=== PATIENT | male | born 1930 | race Caucasian/White ===

== ENCOUNTER 2018-04-09 20:00 | Observation (INO) | payer OTHER, BC ==
--- NOTE | 2018-04-09 20:08 | PDOC ---
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 As per patient, he was sick approximately 2- 3 weeks ago with URI symptoms including a nonproductive cough and one day of fever and chills. He saw his PCP, Dr. Shanks a week ago who placed him on 5 days of Medrol and a week of Amoxicillin. He endorses that despite his compliancy over the past week he has been experiencing worsening shortness of breath with only minimal relief with his nebulizer every 3 hours and sitting upright, prompting his visit to the ER tonight. He denies any current fevers, chills, headache or dizziness. He denies any recent nausea, vomit, diarrhea or constipation. He denies any recent chest pain or palpitations. He denies any recent dysuria, frequency, urgency or hematuria. Allergies: NKDA Past surgical history: Cardiac bypass CABG 1997 Social History: Nonsmoker. Denies EtOH use and recreational drug use. Primary Care Physician: Dr. Shanks Roving Or Yarn Color Checker: Dr. Leblanc <Eulalio Walden - Last Filed: 04/09/18 20:33> <Charmaine Goldman - Last Filed: 04/10/18 05:39> - General Chief Complaint: Shortness of Breath Stated Complaint: SOB Time Seen by Provider: 04/09/18 20:06 Past History <Eulalio Walden - Last Filed: 04/09/18 20:33> - Past Medical History Anemia: No Asthma: Yes Cancer: No Cardiac Disorders: Yes ([place] 1997, BYPASS) CVA: No COPD: No CHF: No Dementia: No Diabetes: No GI Disorders: No Disorders: No HTN: Yes Hypercholesterolemia: Yes Liver Disease: No Seizures: No Thyroid Disease: No - Surgical History Abdominal Surgery: No Appendectomy: No Cardiac Surgery: Yes (CABG X 4 VESSELS 1997) Cholecystectomy: No Lung Surgery: No Neurologic Surgery: No Orthopedic Surgery: No - Immunization History Immunization Up to Date: Yes - Suicide/Smoking/Psychosocial Hx Smoking Status: No Smoking History: Unknown if ever smoked Have you smoked in the past 12 months: No Number of Cigarettes Smoked Daily: 0 If you are a former smoker, when did you quit?: 0 Cigars Per Day: 0 Information on smoking cessation initiated: No Hx Alcohol Use: No Drug/Substance Use Hx: No Substance Use Type: None Hx Substance Use Treatment: No <Charmaine Goldman - Last Filed: 04/10/18 05:39> - Past Medical History Allergies/Adverse Reactions: Allergies Allergy/AdvReac Type Severity Reaction Status Date / Time No Known Drug Allergies Allergy Verified 08/27/13 10:43 Home Medications: Ambulatory Orders Montelukast Na [Singulair -] 10 mg PO HS 09/04/12 Simvastatin [Zocor] 80 mg PO DAILY 09/04/12 Acetaminophen [Tylenol .Extra-Strength -] 500 mg PO PRN PRN 03/25/13 Albuterol Sulfate Inhaler - [Ventolin HFA Inhaler -] 2 inh PO Q4H PRN 03/25/13 Albuterol 0.083% Nebulizer Salma [Ventolin 0.083% Nebulizer Soln -] 1 neb NEB Q6H PRN #20 vial 03/30/13 Carvedilol 3.125 mg PO BID 08/26/13 Lisinopril [Prinivil] 5 mg PO DAILY 08/26/13 Apixaban [Eliquis] 5 mg PO BID 04/09/18 Spironolactone 5 mg PO DAILY 04/09/18 Review of Systems - Review of Systems Able to Perform ROS?: Yes Comments:: 04/09/18 20:34 CONSTITUTIONAL: Absent: fever, no chills, no fatigue EYES: Absent: visual changes ENT: Absent: ear pain, no sore throat CARDIOVASCULAR: Absent: chest pain, no palpitations RESPIRATORY: Present: SOB. Cough. GI: Absent: abdominal pain, no nausea, no vomiting, no constipation, no diarrhea GENITOURINARY: Absent: dysuria, no frequency, no hematuria MUSKULOSKELETAL: Absent: back pain, no arthralgia, no myalgia SKIN: Absent: rash NEURO: Absent: headache <Eulalio Walden - Last Filed: 04/09/18 20:33> *Physical Exam - Vital Signs Last Vital Signs Temp Pulse Resp BP Pulse Ox 97.5 F L 75 14 129/73 98 04/09/18 20:03 04/09/18 20:03 04/09/18 20:03 04/09/18 20:03 04/09/18 20:03 - Physical Exam Comments: 04/09/18 20:36 GENERAL: The patient is awake, alert, and fully oriented, in no acute distress. HEAD: Normal with no signs of trauma. EYES: Pupils equal, round and reactive to light, extraocular movements intact, sclera anicteric, conjunctiva clear with no pallor. ENT: Ears normal, nares patent, oropharynx clear without exudates. Moist mucous membranes. NECK: Normal range of motion, supple without lymphadenopathy, JVD, or masses. +LUNGS: Distant breath sounds. No crackles. HEART: Regular rate and rhythm, normal S1 and S2 without murmur or rub. ABDOMEN: Soft/nontender/nondistended. BS wnl. No guarding or rebound. No palpable masses. No hepatosplenomegaly. +EXTREMITIES: 1+ nonpitting edema to the right ankle. No edema to the left ankle. Normal range of motion. No clubbing or cyanosis. No cords, erythema, or tenderness. NEUROLOGICAL: Cranial nerves II through XII grossly intact. Normal speech, normal gait. PSYCH: Normal mood, normal affect. SKIN: Warm, Dry, normal turgor, no rashes or lesions noted. <Eulalio Walden - Last Filed: 04/09/18 20:33> - Vital Signs Last Vital Signs Temp Pulse Resp BP Pulse Ox 97.5 F L 75 14 129/73 98 04/09/18 20:03 04/09/18 20:03 04/09/18 20:03 04/09/18 20:03 04/09/18 20:03 <Charmaine Goldman - Last Filed: 04/10/18 05:39> Moderate Sedation - Procedure Monitoring Vital Signs: Procedure Monitoring Vital Signs Temperature 97.5 F L 04/09/18 20:03 Pulse Rate 75 04/09/18 20:03 Respiratory Rate 14 04/09/18 20:03 Blood Pressure 129/73 04/09/18 20:03 O2 Sat by Pulse Oximetry (%) 98 04/09/18 20:03 <Eulalio Walden - Last Filed: 04/09/18 20:33> - Procedure Monitoring Vital Signs: Procedure Monitoring Vital Signs Temperature 97.5 F L 04/09/18 20:03 Pulse Rate 75 04/09/18 20:03 Respiratory Rate 14 04/09/18 20:03 Blood Pressure 129/73 04/09/18 20:03 O2 Sat by Pulse Oximetry (%) 98 04/09/18 20:03 <Charmaine Goldman - Last Filed: 04/10/18 05:39> ED Treatment Course - Medications Given in the ED: ED Medications Discontinued Medications Generic Name Dose Route Start Last Admin Trade Name Freq PRN Reason Stop Dose Admin Albuterol/Ipratropium 1 amp 04/09/18 20:27 04/09/18 20:32 Duoneb - NEB 04/09/18 20:28 1 amp ONCE ONE Administration <Eulalio Walden - Last Filed: 04/09/18 20:33> - LABORATORY CBC & Chemistry Diagram: 04/09/18 20:30 04/09/18 20:30 <Charmaine Goldman - Last Filed: 04/10/18 05:39> Progress Note - Progress Note Progress Note: Documentation has been prepared under my direction and personally reviewed by me in its entirety. I attest that this documented accurately reflects all work, treatment, procedures and medical decision making performed by me. <Charmaine Goldman - Last Filed: 04/10/18 05:39> Medical Decision Making - Medical Decision Making As noted above, this 87-year-old man with multiple medical problems including COPD presents with a few week history of nonproductive cough and intermittent wheezing/shortness of breath. He had been treated with antibiotics and short oral steroid course few weeks ago. Despite this, symptoms have been persistent with recurrent shortness of breath. Exam as noted DuoNeb nebulizer treatment was administered; examination afterwards revealed better air movement. Patient subjectively also felt better. Solu-Medrol 125 mg IV started Chest x-ray (PA and lateral) showed expansion of lung soliz suggestive of COPD but no infiltrate/effusion/masses Laboratory evaluation essentially normal except for mild prerenal azotemia and slight elevation of INR of 1.25. Troponin was not elevated. Because this elderly patient has had progressive symptoms of shortness of breath /nonproductive cough for 2-3 weeks that have been persistent despite multiple nebulizer treatments in recent days, admission for exacerbation of COPD OPD and treatment with IV corticosteroids and regular nebulizer treatments as warranted. [facility] hospitalist service contacted: Case discussed with JUAN M Reeder. Patient will be admitted to Dr. Rubio service <Charmaine Goldman - Last Filed: 04/10/18 05:39> *DC/Admit/Observation/Transfer - Attestations Scribe Attestion: 04/09/18 20:36 Documentation prepared by Eulalio Walden, acting as resident medical officer for Charmaine Goldman MD. <Eulalio Walden - Last Filed: 04/09/18 20:33> - Discharge Dispostion Decision to Admit order: Yes <Charmaine Goldman - Last Filed: 04/10/18 05:39> Diagnosis at time of Disposition: COPD exacerbation - Discharge Dispostion Condition at time of disposition: Stable
[2018-04-09] MEDS ORDERED: ALBUTEROL SO4 2.5/IPRATROPIUM 0.5 INH SOL 3 ML VIAL.NEB. NEB ONE ×2 (20:27→20:33)
[2018-04-09 20:46] LABS: BASO % 2.2 % (0-2.0); HEMATOCRIT 43.3 % (35.4-49); HEMOGLOBIN 14.2 GM/dl (11.7-16.9); MCH 31.8 pg (25.7-33.7); MCHC 32.7 g/dl (32.0-35.9); MEAN CELL VOLUME 97.2 fl (80-96); MEAN PLT VOLUME 8.5 fl (7.5-11.1); MONO % 6.5 % (3.8-10.2); NEUT % 50.3 % (42.8-82.8); PLATELET COUNT 162 K/MM3 (134-434); RBC 4.46 M/mm3 (4.00-5.60); WHITE BLOOD COUNT 4.8 K/mm3 (4.0-10.8)
[2018-04-09 20:58] LABS: INR 1.25 (0.82-1.09); PROTHROMBIN TIME (PATIENT) 13.9 SEC (10.2-13.0)
[2018-04-09 21:03] LABS: ALBUMIN 3.5 g/dl (3.5-5.0); ALK PHOS 45 U/L (32-92); ANION GAP 7 MMOL/L (8-16); BILIRUBIN,TOTAL 0.8 mg/dl (0.2-1.0); BLOOD UREA NITROGEN 23 mg/dl (7-18); CALCIUM 8.5 mg/dl (8.4-10.2); CHLORIDE 103 mmol/L (98-107); CO2 24 mmol/L (22-28); CREATININE 1.1 mg/dl (0.6-1.3); GLUCOSE,RANDOM 113 mg/dl (74-106); POTASSIUM 4.1 mmol/L (3.5-5.1); SGOT/AST 18 U/L (10-42); SGPT/ALT 12 U/L (10-40); SODIUM 134 mmol/L (136-145); TOT PROT 6.9 g/dl (6.4-8.3)
[2018-04-09] MEDS ORDERED: methylPREDNISolone NA SUCC 125 MG/2 ML VIAL IVPB ONE (21:19)
[2018-04-09] MEDS ORDERED: methylPREDNISolone NA SUCC 125 MG/2 ML VIAL ONE (21:30)
[2018-04-09] MEDS ORDERED: ACETAMINOPHEN 500 MG TABLET (FP) PO PRN (23:39)
--- NOTE | 2018-04-09 23:59 | HP ---
CHIEF COMPLAINT: Increased SOB and cough x 1 week PCP: Dr. Shanks Comic Illustrator: Dr. Leblanc HISTORY OF PRESENT ILLNESS: 87 year old male, PMH significant for asthma (multiple hospitalizations >20 years ago), [place] (s/p CABG bypass 98), DVT (RLE on Eliquis), HTN, and HLD presented to the ED with one week of worsening SOB and cough. He reports he felt "a cold coming on" one week ago. He did not have a fever, but had chills and a cough which he was unable to bring up any mucus though he felt like it was there. He was seen by his PCP Dr. Shanks and was prescribed a Medrol Dose pack and a z-pack. He reports the medications were not effective, and his SOB worsened. He was using his home nebulizer multiple times a day. He reports his asthma has been stable for many years. Approximately 20 years ago , he had multiple hospitalizations for asthma exacerbations. He used to see research program intern Dr. Leblanc OP, but once Dr. Leblanc tapered him off daily prednisone 6-7 years ago, his asthma has been stable. Denies headache, dizziness, syncope , no palpitations, no abdominal pain or n/v/d, no dysuria, frequency, or hematuria. Upon admission to the ED, VSS, labs WNL, CXR negative for infiltrate. He was treated with Solu-medrol 125 IVP and dunebs. He was placed on observation and a consult with Dr. Leblanc has been ordered. Recent Travel: No PAST MEDICAL HISTORY: Asthma [place] (s/p CABG bypass 98) DVT HTN HLD PAST SURGICAL HISTORY: CABG x 4 1997 Social History: Lives alone, is in [facility] after major stroke a few months ago. 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 4 adult children; 2 sons and 2 daughters. Smoking: Never Alcohol: Rarely; sometimes has 1/2 can of beer Drugs: Denies Family History: Father: Lung Ca, age 57 Mother: Leukemia, age 63 Allergies No Known Drug Allergies Allergy (Verified 08/27/13 10:43) HOME MEDICATIONS: Home Medications Medication Instructions Recorded Montelukast Na [Singulair -] 10 mg PO HS 09/04/12 Simvastatin [Zocor] 80 mg PO DAILY 09/04/12 Acetaminophen [Tylenol 500 mg PO PRN PRN 03/25/13 .Extra-Strength -] Albuterol Sulfate Inhaler - 2 inh PO Q4H PRN 03/25/13 [Ventolin HFA Inhaler -] Albuterol 0.083% Nebulizer Salma 1 neb NEB Q6H PRN #20 vial 03/30/13 [Ventolin 0.083% Nebulizer Soln -] Carvedilol 3.125 mg PO BID 08/26/13 Lisinopril [Prinivil] 5 mg PO DAILY 08/26/13 Apixaban [Eliquis] 5 mg PO BID 04/09/18 Spironolactone 5 mg PO DAILY 04/09/18 REVIEW OF SYSTEMS CONSTITUTIONAL: (+) Chills Absent: fever, diaphoresis, generalized weakness, malaise, loss of appetite, weight change HEENT: Absent: rhinorrhea, nasal congestion, throat pain, throat swelling, difficulty swallowing, mouth swelling, ear pain, eye pain, visual changes CARDIOVASCULAR: Absent: chest pain, syncope, palpitations, irregular heart rate, lightheadedness , peripheral edema RESPIRATORY: (+) cough, shortness of breath, dyspnea with exertion Absent: orthopnea, wheezing, stridor, hemoptysis GASTROINTESTINAL: Absent: abdominal pain, abdominal distension, nausea, vomiting, diarrhea, constipation, melena, hematochezia GENITOURINARY: Absent: dysuria, frequency, urgency, hesitancy, hematuria, flank pain, genital pain MUSCULOSKELETAL: Absent: myalgia, arthralgia, joint swelling, back pain, neck pain SKIN: Absent: rash, itching, pallor HEMATOLOGIC/IMMUNOLOGIC: (+) Easy bleeding (On Eliquis) Absent: easy bruising, lymphadenopathy, frequent infections ENDOCRINE: Absent: unexplained weight gain, unexplained weight loss, heat intolerance, cold intolerance NEUROLOGIC: Absent: headache, focal weakness or paresthesias, dizziness, unsteady gait, seizure, mental status changes, bladder or bowel incontinence PSYCHIATRIC: Absent: anxiety, depression, suicidal or homicidal ideation, hallucinations. PHYSICAL EXAMINATION Vital Signs - 24 hr 04/09/18 04/09/18 20:03 20:44 Temperature 97.5 F L Pulse Rate 75 Respiratory 14 Rate Blood Pressure 129/73 O2 Sat by Pulse 98 98 Oximetry (%) GENERAL: Awake, alert, and fully oriented, in no acute distress. HEAD: Normal with no signs of trauma. EYES: Pupils equal, round and reactive to light, extraocular movements intact, sclera anicteric, conjunctiva clear. No lid lag. EARS, NOSE, THROAT: Nares patent, oropharynx clear without exudates. Moist mucous membranes. NECK: Normal range of motion, supple without lymphadenopathy, JVD, or masses. LUNGS: Distant breath sounds, no wheezes, and no crackles. Labored breathing after talking. HEART: Regular rate and rhythm, normal S1 and S2 without murmur, rub or gallop. ABDOMEN: Soft, nontender, distended, typmanic to percussion, normoactive bowel sounds, no guarding, no rebound, no masses. No hepatomegaly or splenomegaly. MUSCULOSKELETAL: Normal range of motion at all joints. No bony deformities or tenderness. No CVA tenderness. UPPER EXTREMITIES: 2+ pulses, warm, well-perfused. No cyanosis. No clubbing. No peripheral edema. LOWER EXTREMITIES: R>L leg, non pitting edema, 2+ pulses, warm, well-perfused. No calf tenderness. NEUROLOGICAL: No facial droop, tongue midline, normal speech and gait. PSYCHIATRIC: Pleasant, talkative, cooperative. Good eye contact. Appropriate mood and affect. SKIN: Warm, dry, normal turgor, scattered SK to trunk, normal capillary refill. Laboratory Results - last 24 hr 04/09/18 04/09/18 04/09/18 20:30 20:30 20:30 WBC 4.8 RBC 4.46 Hgb 14.2 Hct 43.3 MCV 97.2 H MCH 31.8 MCHC 32.7 RDW 14.0 Plt Count 162 MPV 8.5 Absolute Neuts (auto) 2.5 Neutrophils % 50.3 Lymphocytes % 30.0 Monocytes % 6.5 Eosinophils % 11.0 H Basophils % 2.2 H PT with INR INR Sodium 134 L Potassium 4.1 Chloride 103 Carbon Dioxide 24 Anion Gap 7 L BUN 23 H Creatinine 1.1 Creat Clearance w eGFR > 60 Random Glucose 113 H Calcium 8.5 Total Bilirubin 0.8 AST 18 ALT 12 Alkaline Phosphatase 45 Creatine Kinase 45 Troponin I < 0.03 Total Protein 6.9 Albumin 3.5 04/09/18 20:30 WBC RBC Hgb Hct MCV MCH MCHC RDW Plt Count MPV Absolute Neuts (auto) Neutrophils % Lymphocytes % Monocytes % Eosinophils % Basophils % PT with INR 13.9 H INR 1.25 H Sodium Potassium Chloride Carbon Dioxide Anion Gap BUN Creatinine Creat Clearance w eGFR Random Glucose Calcium Total Bilirubin AST ALT Alkaline Phosphatase Creatine Kinase Troponin I Total Protein Albumin ASSESSMENT/PLAN: 87 year old male, PMH significant for asthma (multiple hospitalizations >20 years ago), [place] (s/p CABG bypass 98), DVT (RLE on Eliquis), HTN, and HLD presented to the ED with one week of worsening SOB and cough. Workup in the ED did not yield any significant findings, patient was treated with IV solumedrol and nebulizers and placed on observation for pulmonary consult. Asthma - CXR negative for infiltrate - Given Solu-medrol 125 IVP in the ed, continue 40 mg IV q6h - Duonebs PRN - Continue Singular 10 mg PO QHS - Pulmonology consult ordered with Dr. Leblanc DVT - Lower right leg, diagnosed 10 years ago - Continue Eliquis 5 mg PO BID HTN - Continue home medications: - Aldactone 25 mg PO qday - Lisinopril 5 mg PO qday - Carvedilol 3.125 PO BID - Monitor BP HLD - Continue Atorvastatin 40 mg PO QHS Prophylaxis - DVT: On Eliquis 5 mg PO BID FEN - PO intake adequate - Replete as needed - Low Na diet Disp: Patient placed on observation, may be appropriate for d/c tomorrow after cleared by Dr. Leblanc. Visit type - Emergency Visit Emergency Visit: Yes Care time: The patient presented to the Emergency Department on the above date and was hospitalized for further evaluation of their emergent condition. - New Patient This patient is new to me today: Yes Date on this admission: 04/10/18 - Critical Care Critical Care patient: No
[2018-04-10] MEDS ORDERED: ALBUTEROL SO4 8 GM HFA INHALER IH PRN (00:24)
[2018-04-10 00:39] VITALS: BMI 24.8
[2018-04-10] MEDS: methylPREDNISolone NA SUCC 40 MG/1 ML VIAL IVPUSH SCH ×4 (02:32→21:27)
[2018-04-10 08:32] LABS: ANION GAP 8 MMOL/L (8-16); BLOOD UREA NITROGEN 26 mg/dl (7-18); CALCIUM 8.8 mg/dl (8.4-10.2); CHLORIDE 106 mmol/L (98-107); CO2 22 mmol/L (22-28); CREATININE 1.1 mg/dl (0.6-1.3); GLUCOSE,RANDOM 140 mg/dl (74-106); POTASSIUM 4.3 mmol/L (3.5-5.1); SODIUM 136 mmol/L (136-145)
[2018-04-10 08:42] LABS: HEMATOCRIT 44.4 % (35.4-49); HEMOGLOBIN 14.3 GM/dl (11.7-16.9); MCH 31.3 pg (25.7-33.7); MCHC 32.2 g/dl (32.0-35.9); MEAN CELL VOLUME 97.4 fl (80-96); MEAN PLT VOLUME 8.4 fl (7.5-11.1); PLATELET COUNT 157 K/MM3 (134-434); RBC 4.56 M/mm3 (4.00-5.60); RDW 13.8 % (11.9-15.9); WHITE BLOOD COUNT 5.7 K/mm3 (4.0-10.8)
--- NOTE | 2018-04-10 08:49 | PN ---
Physical Exam: SUBJECTIVE: Patient seen and examined. Feeling better, though still with some dyspnea. Dry cough. No fevers/chills. OBJECTIVE: Vital Signs Period Temp Pulse Resp BP Sys/Cor[place]ett Pulse Ox Last 24 Hr 97.5 F-97.9 F 74-99 14-18 101-154/63-89 94-98 GENERAL: The patient is awake, alert, and fully oriented, in no acute distress. HEAD: Normal with no signs of trauma. EYES: PERRL, extraocular movements intact, sclera anicteric, conjunctiva clear. No ptosis. ENT: Ears normal, nares patent, oropharynx clear without exudates, moist mucous membranes. NECK: Trachea midline, full range of motion, supple. LUNGS: Breath sounds equal, clear to auscultation bilaterally, no wheezes, no crackles, no accessory muscle use. HEART: Regular rate and rhythm, S1, S2 without murmur, rub or gallop. ABDOMEN: Soft, nontender, nondistended, normoactive bowel sounds, no guarding, no rebound, no hepatosplenomegaly, no masses. EXTREMITIES: 2+ pulses, warm, well-perfused, no edema. NEUROLOGICAL: Cranial nerves II through XII grossly intact. Normal speech, gait not observed. PSYCH: Normal mood, normal affect. SKIN: Warm, dry, normal turgor, no rashes or lesions noted Laboratory Results - last 24 hr 04/09/18 04/09/18 04/09/18 20:30 20:30 20:30 WBC 4.8 RBC 4.46 Hgb 14.2 Hct 43.3 MCV 97.2 H MCH 31.8 MCHC 32.7 RDW 14.0 Plt Count 162 MPV 8.5 Absolute Neuts (auto) 2.5 Neutrophils % 50.3 Lymphocytes % 30.0 Monocytes % 6.5 Eosinophils % 11.0 H Basophils % 2.2 H PT with INR INR Sodium 134 L Potassium 4.1 Chloride 103 Carbon Dioxide 24 Anion Gap 7 L BUN 23 H Creatinine 1.1 Creat Clearance w eGFR > 60 Random Glucose 113 H Calcium 8.5 Total Bilirubin 0.8 AST 18 ALT 12 Alkaline Phosphatase 45 Creatine Kinase 45 Troponin I < 0.03 Total Protein 6.9 Albumin 3.5 04/09/18 20:30 WBC RBC Hgb Hct MCV MCH MCHC RDW Plt Count MPV Absolute Neuts (auto) Neutrophils % Lymphocytes % Monocytes % Eosinophils % Basophils % PT with INR 13.9 H INR 1.25 H Sodium Potassium Chloride Carbon Dioxide Anion Gap BUN Creatinine Creat Clearance w eGFR Random Glucose Calcium Total Bilirubin AST ALT Alkaline Phosphatase Creatine Kinase Troponin I Total Protein Albumin Active Medications Generic Name Dose Route Start Last Admin Trade Name Freq PRN Reason Stop Dose Admin Acetaminophen 500 mg 04/09/18 23:39 Tylenol - PO Q6H PRN PAIN LEVEL 1-5 Albuterol Sulfate 2 puff 04/10/18 00:24 Ventolin Hfa Inhaler - IH Q4H PRN SHORTNESS OF BREATH Albuterol/Ipratropium 1 amp 04/10/18 08:00 Duoneb - NEB RQID YUAN Apixaban 5 mg 04/10/18 10:00 Eliquis - PO BID YUAN Atorvastatin Calcium 40 mg 04/10/18 22:00 Lipitor - PO HS YUAN Carvedilol 3.125 mg 04/10/18 10:00 Coreg - PO BID YUAN Lisinopril 5 mg 04/10/18 10:00 Prinivil PO DAILY [facility] Methylprednisolone Sodium Succinate 40 mg 04/10/18 03:00 04/10/18 02:32 Solu-Medrol - IVPUSH 40 mg Q6H-IV YUAN Administration Montelukast Sodium 10 mg 04/10/18 22:00 Singulair - PO HS YUAN Spironolactone 25 mg 04/10/18 10:00 Aldactone - PO DAILY [facility] ASSESSMENT/PLAN: 87-year-old male with exacerbation of asthma. 1. Asthma - CXR: no infiltrate, some hyperinfalation - Given Solu-medrol 125 IVP in ED, continue 40 mg IV q6h - Continue DuoNebs q6h prn - Continue Singular 10 mg PO QHS - Pulmonary consult pending 2. History of DVT -Continue Eliquis 5 mg PO BID 3. HTN -At goal -Continue home Aldactone 25mg po daily, Lisinopril 5mg PO daily, Coreg 3.125mg PO daoly -These meds suggest history of CHF, however patient unaware and no signs of volume overload on exam 4. HLD -Continue home Atorvastatin 40 mg PO QHS 5. Ppx -Therapeutic Eliquis 6. F/E/N -Low Na diet Dispo: Continue observation status, likely dc in am with slow prednisone taper Visit type - Emergency Visit Emergency Visit: Yes ED Registration Date: 04/09/18 Care time: The patient presented to the Emergency Department on the above date and was hospitalized for further evaluation of their emergent condition. - New Patient This patient is new to me today: Yes Date on this admission: 04/10/18 - Critical Care Critical Care patient: No - Discharge Referral [facility]erred [facility] Med P.C.: No
--- NOTE | 2018-04-10 09:43 | PN ---
Progress Note (short form) - Note Progress Note: PULMONARY CONSULTATION DICTATED 04/10/18 IMP ASTHMA EXACERBATION LIKELY SECONDARY TO URI ASHD S/P PA H/O DVT HTN PLAN MEDROL INHALED BRONCHODILATORS O2 MONITOR PEAK FLOW PFTS OUTPATIENT DR BARRERA Problem List - Problems (1) Asthma Code(s): J45.909 - UNSPECIFIED ASTHMA, UNCOMPLICATED (2) Asthma exacerbation Code(s): J45.901 - UNSPECIFIED ASTHMA WITH (ACUTE) EXACERBATION (3) ASHD (arteriosclerotic heart disease) Code(s): I25.10 - ATHSCL HEART DISEASE OF [place] CORONARY ARTERY W/O ANG PCTRS (4) S/P CABG x 4 Code(s): Z95.1 - PRESENCE OF AORTOCORONARY BYPASS GRAFT (5) HTN (hypertension) Code(s): I10 - ESSENTIAL (PRIMARY) HYPERTENSION
[2018-04-10] MEDS: SPIRONOLACTONE 25 MG TABLET (FP) PO SCH (09:59)
[2018-04-10] MEDS: LISINOPRIL 5 MG TABLET (FP) PO SCH (09:59)
[2018-04-10] MEDS: CARVEDILOL 3.125 MG TABLET (FP) PO SCH ×2 (09:59→21:26)
[2018-04-10] MEDS: ALBUTEROL SO4 2.5/IPRATROPIUM 0.5 INH SOL 3 ML VIAL.NEB. NEB SCH ×4 (09:59→21:26)
[2018-04-10] MEDS: APIXABAN 5 MG TABLET PO SCH ×2 (09:59→21:26)
--- NOTE | 2018-04-10 10:31 | EKG ---
Test Reason : Blood Pressure : / mmHG Vent. Rate : 069 BPM Atrial Rate : 069 BPM P-R Int : 270 ms QRS Dur : 090 ms QT Int : 394 ms P-R-T Axes : 051 -17 075 degrees QTc Int : 422 ms SINUS RHYTHM WITH 1ST DEGREE A-V BLOCK LOW VOLTAGE QRS INFERIOR INFARCT (CITED ON OR BEFORE 13-MAY-2013) ABNORMAL ECG WHEN COMPARED WITH ECG OF 13-MAY-2013 09:24, PREMATURE VENTRICULAR COMPLEXES ARE NO LONGER PRESENT MT INTERVAL HAS INCREASED Confirmed by SONAL MCCARTHY MD ([id number]) on 04/10/2018 10:30:37 AM Referred By: MD ALEX Confirmed By:SONAL MCCARTHY MD
--- NOTE | 2018-04-10 13:17 | CONS ---
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 Patient states about a week ago, he started feeling cold was coming and had a sore throat. No fever, but had chills. He denied any chest pain or palpitations. He also had a cough, but was unable to bring up any sputum. He apparently was prescribed a Z-Mo and Medrol Dosepak without any improvement, at which time, he was presented to the emergency room. He states that prior to going to the emergency room, he was using inhaled nebulizers multiple times daily without any significant improvement, He states he has history of asthma for many years. There is no history of respiratory failure in the past or on ventilatory support. PAST MEDICAL HISTORY: Again includes asthma, ASHD, status post PA, history of DVT at the right lower extremity, hypertension, hyperlipidemia. PAST SURGICAL HISTORY: CABG x4 in 1997. REVIEW OF SYSTEMS: No orthopnea. No PND. Positive mild shortness of breath. Positive cough, nonproductive. No sputum. No hemoptysis. No abdominal pain. No fever. Positive chills. No lower extremity edema. CURRENT MEDICATIONS: Include Solu-Medrol, Tylenol, Prinivil, Eliquis, Duo-Neb, Coreg, Lipitor, Singulair, and Aldactone. PHYSICAL EXAMINATION: General: The patient is a well-developed, well-nourished male, awake, alert, in no acute distress. Vital signs: He is afebrile, blood pressure is 101/63, respiratory rate is 18, O2 saturation is 94% on room air. HEENT: Head is normocephalic atraumatic. Neck: Supple. Heart: Regular, S1, S2. Chest: Clear. A few scattered bilateral wheezes. Abdomen: Soft. Bowel sounds positive. Extremities: No cyanosis or edema. LABORATORIES: WBC is 5.7, hemoglobin 14.3, hematocrit 44.4, platelet count of 157,000. INR is 1.25. BUN 26, creatinine 1.1. Chest x-ray reveals no infiltrates, no effusions. IMPRESSION: 1. Acute asthma exacerbation likely secondary to upper respiratory infection. 2. 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 3. Hypertension. 4. History of deep vein venous thrombosis, on Eliquis. 5. Hyperlipidemia. PLAN: Continue IV steroids, inhaled bronchodilators, supplemental O2, monitor flow, PFTs as outpatient. SAMMI BARRERA M.D. [id number]
[2018-04-10] MEDS ORDERED: MONTELUKAST NA 10 MG TABLET PO SCH (22:00)
[2018-04-10] MEDS ORDERED: ATORVASTATIN CA 40 MG TABLET (FP) PO SCH (22:00)
[2018-04-11] MEDS: methylPREDNISolone NA SUCC 40 MG/1 ML VIAL IVPUSH SCH ×2 (03:00→09:55)
[2018-04-11 06:36] VITALS: BP 101/57; PULSE 89; TEMP 97.8
--- NOTE | 2018-04-11 07:56 | PN ---
Progress Note, Physician History of Present Illness: pulmonary alert,comfortable,dyspnea improved - Current Medication List Current Medications: Active Medications Acetaminophen (Tylenol -) 500 mg PO Q6H PRN PRN Reason: PAIN LEVEL 1-5 Albuterol/Ipratropium (Duoneb -) 1 amp NEB RQID [facility] Last Admin: 04/10/18 21:26 Dose: 1 amp Apixaban (Eliquis -) 5 mg PO BID [facility] Last Admin: 04/10/18 21:26 Dose: 5 mg Atorvastatin Calcium (Lipitor -) 40 mg PO HS [facility] Last Admin: 04/10/18 21:26 Dose: 40 mg Carvedilol (Coreg -) 3.125 mg PO BID [facility] Last Admin: 04/10/18 21:26 Dose: 3.125 mg Lisinopril (Prinivil) 5 mg PO DAILY [facility] Last Admin: 04/10/18 09:59 Dose: 5 mg Methylprednisolone Sodium Succinate (Solu-Medrol -) 40 mg IVPUSH Q6H-IV [facility] Last Admin: 04/11/18 03:00 Dose: 40 mg Montelukast Sodium (Singulair -) 10 mg PO HS [facility] Last Admin: 04/10/18 21:26 Dose: 10 mg Spironolactone (Aldactone -) 25 mg PO DAILY [facility] Last Admin: 04/10/18 09:59 Dose: 25 mg - Objective Vital Signs: Vital Signs Temperature 97.8 F 04/11/18 06:00 Pulse Rate 89 04/11/18 06:00 Respiratory Rate 16 04/11/18 07:51 Blood Pressure 101/57 L 04/11/18 06:00 O2 Sat by Pulse Oximetry (%) 96 04/11/18 07:51 Constitutional: Yes: Well Nourished, Calm Eyes: Yes: WNL HENT: Yes: WNL Neck: Yes: WNL Cardiovascular: Yes: Regular Rate and Rhythm, S1, S2 Respiratory: Yes: CTA Bilaterally Gastrointestinal: Yes: Normal Bowel Sounds, Soft Extremities: Yes: WNL Edema: No Labs: INR, PTT INR 1.25 (0.82-1.09) H 04/09/18 20:30 Problem List - Problems (1) Asthma Code(s): J45.909 - UNSPECIFIED ASTHMA, UNCOMPLICATED (2) Asthma exacerbation Code(s): J45.901 - UNSPECIFIED ASTHMA WITH (ACUTE) EXACERBATION (3) ASHD (arteriosclerotic heart disease) Code(s): I25.10 - ATHSCL HEART DISEASE OF [place] CORONARY ARTERY W/O ANG PCTRS (4) S/P CABG x 4 Code(s): Z95.1 - PRESENCE OF AORTOCORONARY BYPASS GRAFT (5) HTN (hypertension) Code(s): I10 - ESSENTIAL (PRIMARY) HYPERTENSION Assessment/Plan IMP ASTHMA EXACERBATION LIKELY SECONDARY TO URI IMPROVED ASHD S/P DC H/O DVT HTN PLAN PREDNISONE 60mgPO WITH TAPER SYMBICORT 160/4.5 2 PUFFS BID INHALED BRONCHODILATORS PFTS OUTPATIENT DR BARRERA Problem List - Problems (1) Asthma Code(s): J45.909 - UNSPECIFIED ASTHMA, UNCOMPLICATED (2) Asthma exacerbation Code(s): J45.901 - UNSPECIFIED ASTHMA WITH (ACUTE) EXACERBATION (3) ASHD (arteriosclerotic heart disease) Code(s): I25.10 - ATHSCL HEART DISEASE OF [place] CORONARY ARTERY W/O ANG PCTRS (4) S/P CABG x 4 Code(s): Z95.1 - PRESENCE OF AORTOCORONARY BYPASS GRAFT (5) HTN (hypertension) Code(s): I10 - ESSENTIAL (PRIMARY) HYPERTENSION
[2018-04-11] MEDS: ALBUTEROL SO4 2.5/IPRATROPIUM 0.5 INH SOL 3 ML VIAL.NEB. NEB SCH (08:00)
[2018-04-11 08:22] LABS: HEMATOCRIT 40.4 % (35.4-49); HEMOGLOBIN 13.3 GM/dl (11.7-16.9); MCH 32.2 pg (25.7-33.7); MCHC 32.8 g/dl (32.0-35.9); MEAN PLT VOLUME 8.3 fl (7.5-11.1); PLATELET COUNT 138 K/MM3 (134-434); RBC 4.12 M/mm3 (4.00-5.60); RDW 14.1 % (11.9-15.9); WHITE BLOOD COUNT 11.9 K/mm3 (4.0-10.8)
[2018-04-11 08:27] LABS: ANION GAP 8 MMOL/L (8-16); BLOOD UREA NITROGEN 34 mg/dl (7-18); CALCIUM 8.6 mg/dl (8.4-10.2); CHLORIDE 105 mmol/L (98-107); CO2 21 mmol/L (22-28); CREATININE 1.1 mg/dl (0.6-1.3); GLUCOSE,RANDOM 135 mg/dl (74-106); POTASSIUM 4.8 mmol/L (3.5-5.1); SODIUM 134 mmol/L (136-145)
[2018-04-11] MEDS: SPIRONOLACTONE 25 MG TABLET (FP) PO SCH (09:55)
[2018-04-11] MEDS: APIXABAN 5 MG TABLET PO SCH (09:55)
[2018-04-11] MEDS: CARVEDILOL 3.125 MG TABLET (FP) PO SCH (09:55)
[2018-04-11] MEDS: LISINOPRIL 5 MG TABLET (FP) PO SCH (09:55)
--- NOTE | 2018-04-11 10:29 | DS ---
Physical Exam: SUBJECTIVE: Patient seen and examined. Dyspnea resolved, cough improving. No KEVIN. OBJECTIVE: Vital Signs Period Temp Pulse Resp BP Sys/Corbett Pulse Ox Last 24 Hr 97.8 F-98.2 F 89-94 16-18 99-101/57-58 94-96 PHYSICAL EXAM GENERAL: The patient is awake, alert, and fully oriented, in no acute distress. HEAD: Normal with no signs of trauma. EYES: PERRL, extraocular movements intact, sclera anicteric, conjunctiva clear. ENT: Ears normal, nares patent, oropharynx clear without exudates, moist mucous membranes. NECK: Trachea midline, full range of motion, supple. LUNGS: Breath sounds equal, clear to auscultation bilaterally, no wheezes, no crackles, no accessory muscle use. HEART: Regular rate and rhythm, S1, S2 without murmur, rub or gallop. ABDOMEN: Soft, nontender, nondistended, normoactive bowel sounds, no guarding, no rebound, no hepatosplenomegaly, no masses. EXTREMITIES: 2+ pulses, warm, well-perfused, no edema. NEUROLOGICAL: Cranial nerves II through XII grossly intact. Normal speech, gait not observed. PSYCH: Normal mood, normal affect. SKIN: Warm, dry, normal turgor, no rashes or lesions noted. LABS Laboratory Results - last 24 hr 04/11/04/11/18 07:25 07:25 WBC 11.9 H RBC 4.12 Hgb 13.3 Hct 40.4 MCV 98.0 H MCH 32.2 MCHC 32.8 RDW 14.1 Plt Count 138 MPV 8.3 Absolute Neuts (auto) 11.0 Neutrophils % No Result Required. Lymphocytes % No Result Required. Sodium 134 L Potassium 4.8 Chloride 105 Carbon Dioxide 21 L Anion Gap 8 BUN 34 H Creatinine 1.1 Creat Clearance w eGFR > 60 Random Glucose 135 H Calcium 8.6 HOSPITAL COURSE: This is an 87-year-old male with a history of HTN, HLD, and asthma who presented to the ED on 04/09 with dyspnea, wheezing, and cough. He was placed in observation with asthma exacerbation. He was treated with nebulizers and steroids and improved greatly. He was evaluated by pulmonary. He has some leukocytosis today which is likely secondary to steroid administration. He will be discharged today with nebulizers, prednisone taper, and Symbicort, which is new to him. He will follow up with Dr. eLblanc on Saturday. Return precautions reviewed. Date of Admission:04/09/18 Date of Discharge: 04/11/18 Minutes to complete discharge: 45 Discharge Summary Reason For Visit: EXACERBATION - COPD Current Active Problems Asthma exacerbation (Acute) COPD exacerbation (Acute) ASHD (arteriosclerotic heart disease) (Chronic) Asthma (Chronic) HTN (hypertension) (Chronic) S/P CABG x 4 (Chronic) Condition: Improved - Instructions Diet, Activity, Other Instructions: -Start taking Symbicort as prescribed -Take prednisone as prescribed: 80mg (8 tabs) and Saturday, 60mg (6 tabs) Saturday and Saturday. Call Dr. Leblanc on Saturday to talk about how you are feeling and next steps for the taper. -Return here for difficulty breathing, fever, chest pain, or any other concerning symptoms. Referrals: Dandre Leblanc MD [Staff Physician] - (Call on Saturday to discuss) Disposition: HOME - Home Medications Comprehensive Discharge Medication List: Ambulatory Orders Montelukast Na [Singulair -] 10 mg PO HS 09/04/12 Simvastatin [Zocor] 80 mg PO DAILY 09/04/12 Albuterol Sulfate Inhaler - [Ventolin HFA Inhaler -] 2 inh PO Q4H PRN 03/25/13 Albuterol 0.083% Nebulizer Salma [Ventolin 0.083% Nebulizer Soln -] 1 neb NEB Q6H PRN #20 vial 03/30/13 Carvedilol 3.125 mg PO BID 08/26/13 Lisinopril [Prinivil] 5 mg PO DAILY 08/26/13 Apixaban [Eliquis] 5 mg PO BID 04/09/18 Spironolactone 5 mg PO DAILY 04/09/18 Albuterol 0.083% Nebulizer Salma [Ventolin 0.083% Nebulizer Soln -] 1 neb NEB Q6H PRN #20 vial 04/10/18 Nebulizer and Compressor [Comp-Air Nebulizer System] 1 each MC ONCE #1 each 10/21 Budesonide/Formeterol Fumarate [SYMBICORT 160/4.5mcg -] 2 inh PO BID #1 cannister 04/11/18 Carvedilol [Coreg -] 3.125 mg PO BID tablet 04/11/18 Lisinopril [Prinivil] 5 mg PO DAILY tablet 04/11/18 Spironolactone [Aldactone -] 25 mg PO DAILY tablet 04/11/18 predniSONE [Deltasone -] 10 mg PO ASDIR #60 tablet 04/11/18 This patient is new to me today: No Emergency Visit: Yes ED Registration Date: 04/09/18 Care time: The patient presented to the Emergency Department on the above date and was hospitalized for further evaluation of their emergent condition. Critical Care patient: No - Discharge Referral Referred to [facility] No
[2018-04-11 10:34] LABS: PLATELET ESTIMATE SLT INCREASE
== END 2018-04-11 10:57 | disposition home or self-care (01) ==
LOC: FER 20:00 → FM/S 22:58 → UNDOADMOB 23:57 → FM/S 23:57
PROVIDERS: ADMIT Internal Medicine; ATTEND Registered Nurse Emergency
PROC: 3E0F7GC Introduction of Other Therapeutic Substance into Respiratory Tract, Via Natural or Artificial Opening (ICD-10-PCS; principal; 2018-04-09)
PROC: 3E0F7GC Introduction of Other Therapeutic Substance into Respiratory Tract, Via Natural or Artificial Opening (ICD-10-PCS; 2018-04-09)
DX: J44.1 Chronic obstructive pulmonary disease with (acute) exacerbation (principal); J45.901 Unspecified asthma with (acute) exacerbation; I25.10 Atherosclerotic heart disease of native coronary artery without angina pectoris; I10 Essential (primary) hypertension; Z95.1 Presence of aortocoronary bypass graft; E78.5 Hyperlipidemia, unspecified; Z86.718 Personal history of other venous thrombosis and embolism; Z79.01 Long term (current) use of anticoagulants
CPT/HCPCS: 36415; 71046-TC-FY; 80048; 80053; 82550; 83735; 84484; 85025; 85027; 85610; 93005; 94640; 96374; 96376; 99284-25; G0378

== ENCOUNTER 2018-08-19 08:04 | Emergency (ER) | payer OTHER, BC ==
[2018-08-19 08:08] VITALS: BMI 25.7
[2018-08-19 08:14] VITALS: BP 123/70; PULSE 61; TEMP 97.4
[2018-08-19] MEDS ORDERED: NAPROXEN 500 MG TABLET (FP) PO ONE (08:26)
[2018-08-19] MEDS ORDERED: traMADol HCL 50 MG TABLET PO ONE (08:26)
[2018-08-19] MEDS ORDERED: traMADol HCL 50 MG TABLET ONE (08:29)
[2018-08-19] MEDS ORDERED: NAPROXEN 500 MG TABLET (FP) ONE (08:30)
[2018-08-19] MEDS ORDERED: ONDANSETRON *ODT* 4 MG TABLET ONE ×2 (08:33→09:20)
[2018-08-19] MEDS ORDERED: ONDANSETRON *ODT* 4 MG TABLET SL ONE ×2 (08:36→09:20)
--- NOTE | 2018-08-19 08:58 | PDOC ---
History of Present Illness - General Chief Complaint: Pain, Acute Stated Complaint: LBP Time Seen by Provider: 08/19/18 08:10 History Source: Patient Exam Limitations: No Limitations - History of Present Illness Initial Comments: 08/19/18 08:52 Very high functioning 87-year-old male with history of hypertension, high cholesterol, CAD with history of CABG, asthma presents with 1 day of left low back pain. Patient was in his usual state of good health, about 3 days ago was moving a piece of lawn equipment but did not sustain any injury, the following day noticed some mild left low back pain that resolved on its own. Last night, after standing up from the couch patient developed a sharper pain to his left low back which is been persistent since then, constant and sharp but localized to the left low back and not radiating to the flank or left lower extremity or groin. The pain is positional, predominantly with sitting to standing or standing to sitting, there is no leg weakness or sensory deficit, there is no urinary incontinence or dysuria or hematuria. Has some associated nausea with the highest spikes in pain, otherwise no vomiting or diarrhea or constipation. Patient took Tylenol without relief, did not drink any other medications. Denies any history of recurring low back pain or injuries, never needed MRIs of his lower spine. Takes eliquis for history of DVT, no PE. No cough/cp/palp/sob. Past History - Past Medical History Allergies/Adverse Reactions: Allergies Allergy/AdvReac Type Severity Reaction Status Date / Time No Known Drug Allergies Allergy Verified 08/19/18 08:05 Home Medications: Ambulatory Orders Montelukast Na [Singulair -] 10 mg PO HS 09/04/12 Simvastatin [Zocor] 80 mg PO DAILY 09/04/12 Albuterol Sulfate Inhaler - [Ventolin HFA Inhaler -] 2 inh PO Q4H PRN 03/25/13 Albuterol 0.083% Nebulizer Salma [Ventolin 0.083% Nebulizer Soln -] 1 neb NEB Q6H PRN #20 vial 03/30/13 Carvedilol 3.125 mg PO BID 08/26/13 Lisinopril [Prinivil] 5 mg PO DAILY 08/26/13 Apixaban [Eliquis] 5 mg PO BID 04/09/18 Spironolactone 5 mg PO DAILY 04/09/18 Albuterol 0.083% Nebulizer Salma [Ventolin 0.083% Nebulizer Soln -] 1 neb NEB Q6H PRN #20 vial 04/10/18 Nebulizer and Compressor [Comp-Air Nebulizer System] 1 each ONCE #1 each 10/21 Budesonide/Formeterol Fumarate [SYMBICORT 160/4.5mcg -] 2 inh PO BID #1 cannister 04/11/18 Carvedilol [Coreg -] 3.125 mg PO BID tablet 04/11/18 Lisinopril [Prinivil] 5 mg PO DAILY tablet 04/11/18 Spironolactone [Aldactone -] 25 mg PO DAILY tablet 04/11/18 predniSONE [Deltasone -] 10 mg PO ASDIR #60 tablet 04/11/18 Cyclobenzaprine HCl [Flexeril -] 10 mg PO BID PRN #7 tablet MDD 2 tabs 08/19/18 Tramadol HCl 50 mg PO BID PRN #5 tablet MDD 2 tab 08/19/18 Anemia: No Asthma: Yes Cancer: No Cardiac Disorders: Yes ([place] 1997, BYPASS) CVA: No COPD: No CHF: No Dementia: No Diabetes: No GI Disorders: No Disorders: No HTN: Yes Hypercholesterolemia: Yes Liver Disease: No Seizures: No Thyroid Disease: No - Surgical History Abdominal Surgery: No Appendectomy: No Cardiac Surgery: Yes (CABG X 4 VESSELS 1997) Cholecystectomy: No Lung Surgery: No Neurologic Surgery: No Orthopedic Surgery: No - Immunization History Immunization Up to Date: Yes - Suicide/Smoking/Psychosocial Hx Smoking Status: No Smoking History: Never smoked Have you smoked in the past 12 months: No Number of Cigarettes Smoked Daily: 0 If you are a former smoker, when did you quit?: 0 Cigars Per Day: 0 Hx Alcohol Use: No Drug/Substance Use Hx: No Substance Use Type: None Hx Substance Use Treatment: No Review of Systems - Review of Systems Constitutional: No: Chills, Fever, Night Sweats HEENTM: No: Throat Swelling Respiratory: No: Cough, Shortness of Breath Cardiac (ROS): No: Chest Pain, Edema, Lightheadedness, Syncope ABD/GI: Yes: Nausea. No: Constipated, Diarrhea, Vomiting : No: Burning, Dysuria, Frequency, Flank Pain, Hematuria, Incontinence Musculoskeletal: Yes: Back Pain Integumentary: No: Rash Neurological: No: Tingling, Weakness All Other Systems: Reviewed and Negative *Physical Exam - Vital Signs Last Vital Signs Temp Pulse Resp BP Pulse Ox 97.4 F L 61 19 123/70 99 08/19/18 08:05 08/19/18 08:05 08/19/18 08:05 08/19/18 08:05 08/19/18 08:05 - Physical Exam Comments: 08/19/18 09:05 Vitals are within normal limits. GENERAL: The patient is awake, alert, and fully oriented. Standing at bedside in mild distress 2/2 L low back pain, worse with positional changes. HEAD: Normal with no signs of trauma. EYES: PERRL, EOMI, no pallor. ENT: oropharynx clear. Moist mucous membranes. NECK: Normal range of motion, supple. LUNGS: Breath sounds equal, clear to auscultation bilaterally. No wheeze/ crackles. HEART: Regular rate and rhythm, normal S1 and S2 without murmur or rub. ABDOMEN: Soft/nontender/nondistended. BS wnl. Spontaneously reducing epigastric incisional ventral hernia. No guarding or rebound. No palpable masses. No hepatosplenomegaly. No cvat. EXTREMITIES: Normal range of motion with 5/5 flex/extend of b/l hips/knees/ ankles/toes. Negative straight leg raise, no edema. 2+ distal pulses. No cords, erythema, or tenderness. NEUROLOGICAL: Cranial nerves II through XII grossly intact. Normal speech, normal gait. PSYCH: Normal mood, normal affect. SKIN: Healed CABG incisional scar. No zoster rash. Warm, Dry, no rashes or lesions noted. ED Treatment Course - RADIOLOGY Radiology Studies Ordered: Category Date Time Status SPINE-LUMBAR SACRAL [RAD] Stat Radiology 08/19/18 08:26 Ordered - Medications Given in the ED: ED Medications Discontinued Medications Generic Name Dose Route Start Last Admin Trade Name Freq PRN Reason Stop Dose Admin Ondansetron HCl 4 mg 08/19/18 08:36 08/19/18 08:37 Zofran Odt - SL 08/19/18 08:37 4 mg ONCE ONE Administration Medical Decision Making - Medical Decision Making 08/19/18 09:07 Healthy 87-year-old male presents with atraumatic left low back pain for 2 days. HD stable here and neuro intact without red flags on history/PE. Presentation most consistent with musculoskeletal etiology, no findings to suggest GI//vascular source or other neuro involvement. check LS xray given age trial of tramadol, single dose nsaid since on eliquis, zofran for nausea check UA reassess 08/19/18 10:38 xray with degenerative changes but no acute fracture/dislocation/blastic or lytic lesion. pain improved at rest, still spikes with positional changes. UA pending. Will add muscle relaxant, reassess. Remains neuro intact. 08/19/18 11:23 UA negative. Feels much better after the flexeril, actually quickly sat up out of bed and jumped. Remains neuro intact, son and daughter at bedside will accompany home, agree with plan for lidocaine patch, tramadol/flexeril prn, avoid nsaids. Understand return criteria. *DC/Admit/Observation/Transfer Diagnosis at time of Disposition: Left low back pain Qualifiers: Chronicity: acute Sciatica presence: without sciatica Qualified Code(s): M54.5 - Low back pain - Discharge Dispostion Disposition: HOME Condition at time of disposition: Improved - Prescriptions Prescriptions: Cyclobenzaprine HCl [Flexeril -] 10 mg PO BID PRN #7 tablet MDD 2 tabs PRN Reason: Muscle Spasms Tramadol HCl 50 mg PO BID PRN #5 tablet MDD 2 tab PRN Reason: Severe Pain - Referrals Referrals: Raghav Shanks MD [Primary Care Provider] - Sami Tavarez MD [Staff Physician] - - Patient Instructions Printed Discharge Instructions: DI for Low Back Pain Additional Instructions: Activity as tolerated. Stay hydrated. An x-ray today showed some degenerative/arthritis changes but no acute bony abnormality. A urinalysis was normal. The pain is likely due to muscle or ligament strain in the low back. Avoid bedrest and avoid strenuous activity, apply lidocaine patch 4% (this is available over the counter and should be changed per the instructions on the package). Take Flexeril (muscle relaxant) as prescribed as needed for pain/spasm. Take Tramadol as prescribed as needed for severe pain. Flexeril and Tramadol can make you light headed, so take proper precautions. Continue your medications as previously prescribed by your physician. You should follow up with your primary doctor and/or a customer energy specialist as soon as possible regarding today's emergency department visit. Return to the emergency department for any new or concerning symptoms, particularly persistent or worsening pain, bowel/bladder issues, leg weakness or numbness, fever/chills. - Post Discharge Activity
[2018-08-19] MEDS ORDERED: CYCLOBENZAPRINE HCL 5 MG TABLET PO ONE (10:29)
[2018-08-19] MEDS ORDERED: CYCLOBENZAPRINE HCL 10 MG TABLET (FP) ONE (10:39)
== END 2018-08-19 11:50 | disposition home or self-care (01) ==
LOC: FER 08:04
DX: M54.5 Low back pain (principal); I25.2 Old myocardial infarction; I10 Essential (primary) hypertension; E78.00 Pure hypercholesterolemia, unspecified; Z95.1 Presence of aortocoronary bypass graft
CPT/HCPCS: 72100-TC-FY; 81003; 99282-25; Q0162

== ENCOUNTER 2018-08-25 11:25 | Emergency (ER) | payer OTHER, BC ==
[2018-08-25 11:45] VITALS: BP 104/57; PULSE 76; TEMP 98.5; BMI 25.7
--- NOTE | 2018-08-25 12:21 | PDOC ---
History of Present Illness - General Chief Complaint: Back Pain Stated Complaint: LOWER BACK Time Seen by Provider: 08/25/18 12:17 History Source: Patient, Family Exam Limitations: No Limitations - History of Present Illness Initial Comments: 08/25/18 13:16 HPI 87-year-old male with history of DVT on eliquis, HTN, HLD, CAD with history of CABG, asthma presenting with back pain, sent in by PMD, Dr. Shanks for r/o AAA. Patient is complaining of lower left sided back pain for the past 10 days. Patient denies any falls, trauma, or heavy lifting prior to noticing the back pain. He reports relief only when lying on the left side while crossing his legs. States he may have had similar back pain on the right side in the past that typically resolved on its own. Patient was recently seen at [facility] on 08/19 for back pain, likely 2/2 MSK, and sent home on tramadol and flexeril, which has made him sleepy, but minimal pain relief. Admits to nausea 2/2 pain. Denies numbness, tingling, weakness, bowel or bladder incontinence. Denies difficulty ambulating, fever, chills, vomiting, lightheadedness or dizziness. Allergies: None Past Medical History: DVT on eliquis, HTN, HLD, CAD with history of CABG, asthma Social history: Lives with family. No tobacco, ETOH or drug use. Surgical history: CABG Meds: as documented in EMR - carvedilol, eliquis, lisinopril, simvastatin, singulair, spirinolactone, albuterol, montelukast PMD: Dr. Shanks Review of systems Constitutional: no fevers or chills. HEENT: no headache or dizziness. CVS: no cp or syncope. Resp: no sob. No cough. Gastrointestinal: no abdominal pain, nausea or vomiting. Genitourinary: no urinary sx, hematuria. No retention, urgency or frequency. MUSCULOSKELETAL: No joint pain and swelling. No neck pain. (+) back pain. SKIN: no redness or skin changes, no discharge, no rash. No wounds. Hematologic: no easy bruising/bleeding. NEUROLOGIC: No headache, dizziness, LOC or altered mental status. No weakness, numbness or tingling. Psych: no anxiety or depression Allergic/Immunologic: no allergies All other systems reviewed and negative, or as documented in HPI. Physical exam: General: Well appearing, awake and alert, NAD. HEENT: NCAT, PERRL, EOMI, clear conjunctiva, anicteric, moist mucus membranes, clear oropharynx, no oral lesions.. Neck: neck supple, FROM Resp: CTAB, normal and even respirations, no respiratory distress CVS: RRR, no murmurs, 2+ peripheral pulses throughout, no peripheral edema Chest: (+) Midline sternotomy scar. Abdomen: soft, NTND, no peritoneal signs. (+) upper midsternal ventral wall defect. No palpable herniation or skin changes. Back: normal inspection and ROM (+) left lateral buttock sacroiliac tenderness. No midline tenderness. No flank tenderness. MSK: no edema, HERM[place]ILLO x4, ROM intact. No clubbing or cyanosis. normal bulk and tone. Neg SLR bilaterally. Neuro: alert, no focal neuro deficits. 5/5 plantar flexion and dorsiflexion, SILT in all extrem. Skin: warm and well perfused, cap refill <2 sec, normal color Past History - Past Medical History Allergies/Adverse Reactions: Allergies Allergy/AdvReac Type Severity Reaction Status Date / Time No Known Drug Allergies Allergy Verified 08/25/18 11:41 Home Medications: Ambulatory Orders Montelukast Na [Singulair -] 10 mg PO HS 09/04/12 Simvastatin [Zocor] 80 mg PO DAILY 09/04/12 Albuterol Sulfate Inhaler - [Ventolin HFA Inhaler -] 2 inh PO Q4H PRN 03/25/13 Albuterol 0.083% Nebulizer Salma [Ventolin 0.083% Nebulizer Soln -] 1 neb NEB Q6H PRN #20 vial 03/30/13 Carvedilol 3.125 mg PO BID 08/26/13 Lisinopril [Prinivil] 5 mg PO DAILY 08/26/13 Apixaban [Eliquis] 5 mg PO BID 04/09/18 Spironolactone 5 mg PO DAILY 04/09/18 Albuterol 0.083% Nebulizer Salma [Ventolin 0.083% Nebulizer Soln -] 1 neb NEB Q6H PRN #20 vial 04/10/18 Nebulizer and Compressor [Comp-Air Nebulizer System] 1 each MC ONCE #1 each 10/21 Budesonide/Formeterol Fumarate [SYMBICORT 160/4.5mcg -] 2 inh PO BID #1 cannister 04/11/18 Carvedilol [Coreg -] 3.125 mg PO BID tablet 04/11/18 Lisinopril [Prinivil] 5 mg PO DAILY tablet 04/11/18 Spironolactone [Aldactone -] 25 mg PO DAILY tablet 04/11/18 predniSONE [Deltasone -] 10 mg PO ASDIR #60 tablet 04/11/18 Cyclobenzaprine HCl [Flexeril -] 10 mg PO BID PRN #7 tablet MDD 2 tabs 08/19/18 Tramadol HCl 50 mg PO BID PRN #5 tablet MDD 2 tab 08/19/18 Cyclobenzaprine HCl [Flexeril 10 mg] 10 mg PO BID PRN #10 tablet 08/25/18 Lidocaine 5% Patch [Lidoderm Patch -] 1 patch TP DAILY #7 patch 08/25/18 Anemia: No Asthma: Yes Cancer: No Cardiac Disorders: Yes (IA 1997, BYPASS) CVA: No COPD: No CHF: No Dementia: No Diabetes: No GI Disorders: No Disorders: No HTN: Yes Hypercholesterolemia: Yes Liver Disease: No Seizures: No Thyroid Disease: No - Surgical History Abdominal Surgery: No Appendectomy: No Cardiac Surgery: Yes (CABG X 4 VESSELS 1997) Cholecystectomy: No Lung Surgery: No Neurologic Surgery: No Orthopedic Surgery: No - Immunization History Immunization Up to Date: Yes - Suicide/Smoking/Psychosocial Hx Smoking Status: No Smoking History: Never smoked Have you smoked in the past 12 months: No Number of Cigarettes Smoked Daily: 0 If you are a former smoker, when did you quit?: 0 Cigars Per Day: 0 Hx Alcohol Use: No Drug/Substance Use Hx: No Substance Use Type: None Hx Substance Use Treatment: No *Physical Exam - Vital Signs Last Vital Signs Temp Pulse Resp BP Pulse Ox 98.5 F 76 16 104/57 L 98 08/25/18 11:41 08/25/18 11:41 08/25/18 11:41 08/25/18 11:41 08/25/18 11:41 ED Treatment Course - LABORATORY CBC & Chemistry Diagram: 08/25/18 13:20 08/25/18 13:20 Medical Decision Making - Medical Decision Making 08/25/18 12:55 I, Della Chi MD, attest that this document has been prepared under my direction and personally reviewed by me in its entirety. I further attest, that it accurately reflects all work, treatment, procedures and medical decision -making performed by me. See HPI for details Vital signs reviewed, wnl. DDx. UTI, pyelo, AAA, back strain, lumbago, sciatica, radiculopathy, spinal stenosis. Muscle spasm. Lumbar radiculopathy. Prior notes reviewed, including admissions, discharges and consultations. Prior Lumbar x-ray from 08/19/18 with degenerative changes, patent SI joints and intact paraspinal tissues, vascular calcifications, narrow lower intervertebral disc spaces; no fx or subluxation or blastic/lytic lesions. laboratory results and imaging reviewed, basic labs and lytes wnl, Cr borderline at 1.4, prior normal, will hydrate. no flank pain. doubt colic or renal pathology UA_neg for blood or infection, doubt renal colic or UTI/pyelo ED course - analgesia with lidoderm, morphine, IVF. no neuro or vascular deficits, NVI. - bedside US aorta as documented, no e/o AAA, no peritoneal ff, normal kidneys w /o hydro. The patient has been educated on the risks and benefits of exam including nephrotoxicity/renal injury and organ failure, anaphylaxis, allergic rxn. Hydration with IV fluids and NAC. Consent form signed for the iodinated contrast. GFR 44-31 can receive IV contrast consent signed. - CTA chest and abdomen. 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 Unchanged mild dilatation of the aorta with a 4.2 cm diameter. Otherwise no abdominal aortic aneurysm is noted. Patient has no respiratory symptoms, unclear etiology of mild opacity seen in the left upper lobe that could most likely be atelectasis and much less likely a infiltrate as patient does not have any systemic, respiratory or fever sx - clinical call back to Dr Shanks - updated with results, Cr function and CTA - with baseline stable findings and borderline thoracic asc aorta at 4cm; no AAA. PMD had already written for percocet to pharmacy to be used for pain - on reassessment, able to stand, gait stable, FROM, pain improved. ambulatory w /o gait disturbance. - reviewed with patient and family CT results, no indication for MRI imaging, with prior Xray also seen, no midline sx to suggest spinal cord pathology or cauda equina, no trauma or fall to suggest compression fx. Pt to be discharged in stable condition. Patient and family made aware of impression and plan, return precautions discussed (including but not limited to worsening pain or symptoms), fevers, or signs of infection, chest pain, respiratory distress, inability to tolerate oral intake, dehydration, syncope, or neurologic changes). Follow up with PMD as recommended, follow up information provided, take medications as instructed for duration of time. continue with supportive care, avoid triggers and precipitants. All questions answered to patient's satisfaction and expressed understanding and comfort with this. Patient does not suffer from an acute life-threatening medical condition at this time he is safe for outpatient follow-up. 08/25/18 18:45 *DC/Admit/Observation/Transfer Diagnosis at time of Disposition: Strain of left buttock - Discharge Dispostion Disposition: HOME Condition at time of disposition: Improved Decision to Admit order: No - Prescriptions Prescriptions: Cyclobenzaprine HCl [Flexeril 10 mg] 10 mg PO BID PRN #10 tablet PRN Reason: Muscle Spasms Lidocaine 5% Patch [Lidoderm Patch -] 1 patch TP DAILY #7 patch - Referrals Referrals: Raghav Shanks MD [Staff Physician] - Shashi Sykes DO [Staff Physician] - Stan Marino DO [Staff Physician] - - Patient Instructions Printed Discharge Instructions: DI for Low Back Pain, Exercise May Reduce Risk of Low Back Pain Additional Instructions: you most likely have musculoskeletal strain or arthritis related pain your CT angiography of chest and abdomen revealed stable aortic root dilation, but no abdominal aorta aneurysm or abdominal abnormalities or retroperitoneal bleed/abnormalities prior X ray of your back showed degenerative changes, but no bony abnormalities. your blood work and urine was normal, no blood or infection. your Creatinine function is borderline at 1.4, upper limit of normal is 1.2 - you were hydrated and have this rechecked with your primary as this is only borderline. avoid heavy lifting or strenuous activity to minimize further injury flexeril is a muscle relaxant, take three times a day as needed may cause sleepiness, do not drive or operate machinery or take with alcohol. do not take this with the Percocet at the same time, so space them out and only take one at a time for your symptoms. topical lidoderm patch to the area affected, 12 hours on and 12 hours off.. Please take one tablet of Tylenol -OXYCODONE every 6 hours, as needed for SEVERE pain. This is prescribed by your primary doctor already, sent to your pharmacy for pickup. do not take additional tylenol with it as it contains tylenol already. Please do not take this medication unless you absolutely need it, it is very addictive. Please do not drive, operate heavy machinery or make important decisions while on this medication, it can cloud your judgement. it can also cause constipation. continue with range of motion exercises, as this will facilitate the healing process; avoid being bed bound and immobile. RICE rest ice elevate the affected extremity Rest, Ice (20 minutes at a time, 3 times a day), Compression (ERIC wrap or splint ), Elevation (above the heart). Follow up with your primary care physician in 1 week if symptoms persist, or with orthopedics if needed. Follow up with primary doctor/specialist services provided as well. orthopedics referrals given. This should heal over the next 3-5 days. - Post Discharge Activity - Attestations Physician Attestion: 08/25/18 17:57 I, Della Chi MD, attest that this document has been prepared under my direction and personally reviewed by me in its entirety. I further attest, that it accurately reflects all work, treatment, procedures and medical decision -making performed by me.
[2018-08-25] MEDS ORDERED: LIDOCAINE 5% TOPICAL PATCH TP ONE (12:37)
[2018-08-25] MEDS ORDERED: morphine CARPU-JECT 4 MG/1 ML DISP.SYRIN IVPUSH ONE ×2 (12:37→14:35)
[2018-08-25] MEDS ORDERED: SODIUM CHLORIDE 0.9% 500 ML INFUS.BAG IV ONE ×2 (12:39→14:16)
[2018-08-25] MEDS ORDERED: morphine SULFATE 4 MG/ML VIAL ONE ×2 (12:56→14:51)
[2018-08-25] MEDS ORDERED: LIDOCAINE 5% TOPICAL PATCH ONE (12:56)
[2018-08-25 13:29] LABS: BASO % 0.8 % (0-2.0); EOS % 3.5 % (0-4.5); HEMATOCRIT 39.6 % (35.4-49); HEMOGLOBIN 13.3 GM/dL (11.7-16.9); LYMPH % 22.9 % (8-40); MCH 31.8 pg (25.7-33.7); MCHC 33.5 g/dl (32.0-35.9); MEAN CELL VOLUME 95.1 fl (80-96); MEAN PLT VOLUME 7.8 fl (7.5-11.1); MONO % 9.2 % (3.8-10.2); NEUT % 63.6 % (42.8-82.8); PLATELET COUNT 157 K/MM3 (134-434); RBC 4.17 M/mm3 (4.00-5.60); RDW 13.5 % (11.9-15.9); WHITE BLOOD COUNT 5.9 K/mm3 (4.0-10.0)
[2018-08-25 13:40] LABS: INR 1.33 (0.83-1.09); PROTHROMBIN TIME (PATIENT) 15.7 SEC (9.7-13.0)
[2018-08-25 13:55] LABS: ALBUMIN 3.6 g/dl (3.4-5.0); ALK PHOS 47 U/L (45-117); ANION GAP 7 MMOL/L (8-16); BILIRUBIN,TOTAL 0.8 mg/dL (0.2-1); BLOOD UREA NITROGEN 27 mg/dL (7-18); CALCIUM 9.1 mg/dL (8.5-10.1); CHLORIDE 102 mmol/L (98-107); CO2 27 mmol/L (21-32); CREATININE 1.4 mg/dL (0.55-1.3); GLUCOSE,RANDOM 89 mg/dL (74-106); POTASSIUM 4.9 mmol/L (3.5-5.1); SGOT/AST 18 U/L (15-37); SGPT/ALT 18 U/L (13-61); SODIUM 136 mmol/L (136-145); TOT PROT 6.6 g/dl (6.4-8.2)
[2018-08-25 18:05] LABS: URINE APPEARANCE CLEAR; URINE BILIRUBIN NEGATIVE (NEGATIVE); URINE COLOR YELLOW; URINE GLUCOSE (UA) NEGATIVE (NEGATIVE); URINE KETONE NEGATIVE (NEGATIVE); URINE LEUK ESTERASE NEGATIVE (NEGATIVE); URINE NITRITE NEGATIVE (NEGATIVE); URINE PROTEIN NEGATIVE (NEGATIVE); URINE UROBILINOGEN 0.2 mg/dL (0.2-1.0)
== END 2018-08-25 19:12 | disposition home or self-care (01) ==
LOC: JER 11:25
PROC: 3E033NZ Introduction of Analgesics, Hypnotics, Sedatives into Peripheral Vein, Percutaneous Approach (ICD-10-PCS; principal; 2018-08-25)
PROC: BW40ZZZ Ultrasonography of Abdomen (ICD-10-PCS; 2018-08-25)
DX: S76.012A Strain of muscle, fascia and tendon of left hip, initial encounter (principal); S39.012A Strain of muscle, fascia and tendon of lower back, initial encounter; X58.XXXA Exposure to other specified factors, initial encounter; Y93.89 Activity, other specified; Y92.89 Other specified places as the place of occurrence of the external cause; I25.10 Atherosclerotic heart disease of native coronary artery without angina pectoris; I10 Essential (primary) hypertension; Z95.1 Presence of aortocoronary bypass graft; I25.2 Old myocardial infarction; Z86.718 Personal history of other venous thrombosis and embolism; Z79.01 Long term (current) use of anticoagulants; E78.5 Hyperlipidemia, unspecified; J45.909 Unspecified asthma, uncomplicated
CPT/HCPCS: 36415; 71275-TC; 74175-TC; 76606; 80053; 81003; 85025; 85610; 86850; 86900; 86901; 87086; 96374; 96376; 99281-25